=== PATIENT | female | born 1950 | race Caucasian/White ===

== ENCOUNTER 2018-11-09 17:04 | Inpatient (IN) | payer MEDICARE ==
[2018-11-09 17:08] VITALS: BMI 36.4
[2018-11-09] MEDS ORDERED: Dicyclomine 20 MG TAB PO PRN (18:12)
[2018-11-09] MEDS ORDERED: LINACLOTIDE 75 MCG PO PRN (18:12)
[2018-11-09] MEDS ORDERED: Acetaminophen 500 MG TAB PO PRN (18:13)
[2018-11-09] MEDS ORDERED: HYDROcodone/Acetaminophen 5/325 mg Tablet PO PRN ×2 (18:58→19:27)
[2018-11-09] MEDS: HYDROcodone/Acetaminophen 5/325 mg Tablet PO PRN (19:36)
[2018-11-09] MEDS: Aspirin Chewable 81 MG TAB PO SCH (20:45)
[2018-11-09] MEDS: Losartan Potassium 50 MG TAB PO SCH (20:47)
[2018-11-09] MEDS: Zolpidem Tartrate 5 MG TAB PO PRN (20:48)
[2018-11-10] MEDS: HYDROcodone/Acetaminophen 5/325 mg Tablet PO PRN ×4 (01:39→20:46)
[2018-11-10 05:27] LABS: #Basophils 0.1 thou/uL (0.0-0.2); #Eosinphils 0.3 thou/uL (0.0-0.7); #Monocytes 0.8 thou/uL (0.11-0.59); #Neutrophils 7.2 thou/uL (1.40-6.50); %Basophils 0.6 % (0.0-1.0); %Eosinophils 3.1 % (0.0-10.0); %Lymphocytes 19.5 % (21.0-51.0); %Monocytes 7.8 % (0.0-10.0); %Neutrophils 68.9 % (42.0-75.0); Hemoglobin 10.1 g/dL (12.0-16.0); Mean Corpuscular HGB CONC 31.2 g/dL (32.0-36.0); Mean Corpuscular Hemoglobin 28.1 pg (27.0-31.0); Mean Corpuscular Volume 89.9 fL (78.0-98.0); Mean Platelet Volume 7.2 fL (7.4-10.4); Platelet Count 301 thou/uL (130-400); RBC Distribution Width 12.6 % (11.5-14.5); Red Blood Cell (RBC) Count 3.61 mill/uL (4.20-5.40); White Blood Cell (WBC) Count 10.4 thou/uL (4.8-10.8)
[2018-11-10 05:41] LABS: Anion Gap 13 mmol/L (10-20); BUN (Urea Nitrogen) 9 mg/dL (9.8-20.1); Calc. Creatinine Clearance 132 mL/min (70-130); Calcium 8.7 mg/dL (7.8-10.44); Carbon Dioxide 26 mmol/L (23-31); Chloride 103 mmol/L (98-107); Estimated GFR-MDRD Greater than 90; Glucose 104 mg/dL (80-115); Potassium 4.3 mmol/L (3.5-5.1); Sodium 138 mmol/L (136-145)
[2018-11-10] MEDS: Ibuprofen 800 MG TAB PO PRN ×2 (06:27→16:48)
[2018-11-10] MEDS: Aspirin Chewable 81 MG TAB PO SCH ×2 (07:47→20:38)
--- NOTE | 2018-11-10 15:11 | HP ---
CHIEF COMPLAINT: Bilateral total knee replacement for physical therapy. BRIEF HISTORY: This is a pleasant 68-year-old female, who underwent bilateral elective total knee replacement. She was felt to be a candidate for inpatient rehabilitation and transferred here. The patient is resting in her chair and denies any complaints. Family is with her. She was restarted back on hydrocodone for her pain and Ambien for sleep. No concerns or questions. PAST MEDICAL HISTORY: 1. Osteoarthritis. 2. Hypertension. 3. Gastroesophageal reflux disease. 4. Obese with BMI between 30 and 34.9. PAST SURGICAL HISTORY: 1. Right parathyroidectomy. 2. Bilateral total knee replacement. SOCIAL HISTORY: Denies any tobacco, alcohol, or IV drug abuse. FAMILY HISTORY: Noncontributory to current admission. ALLERGIES: NO KNOWN DRUG ALLERGIES. MEDICATIONS: She has been transferred here on the following medications, 1. Tylenol 500 mg q.6 p.r.n. 2. Aspirin 40.5 mg b.i.d. 3. Bentyl 20 mg daily p.r.n. 4. Ibuprofen 800 mg q.8 p.r.n. 5. Losartan 100 mg at bedtime. 6. Protonix 40 mg b.i.d. 7. Linzess 75 mcg one tablet daily. REVIEW OF SYSTEMS: CARDIOVASCULAR: Denies any chest pain, shortness of breath, palpitations, PND, orthopnea, or pedal edema. RESPIRATORY: Denies any chronic cough, expectoration, pleuritic type chest pain. GASTROINTESTINAL: Denies any nausea, vomiting, diarrhea, constipation, hematemesis, melena, or hematochezia. GENITOURINARY: Denies any frequency, urgency, dysuria, or hematuria. CENTRAL NERVOUS SYSTEM: Denies any focal numbness, weakness, fainting spells. HEENT: Denies any difficulty with speech, vision, hearing, or swallowing. SKIN: Denies any rash. PHYSICAL EXAMINATION: GENERAL: Conor 68-year-old overweight female, who is resting comfortably in her chair and denies any complaints. VITAL SIGNS: She is afebrile. Heart rate 87, respirations 21, oxygen saturation 97% on room air, and blood pressure 119/59. HEENT: Normocephalic and atraumatic. Pupils are equally reactive to light and accommodation. External muscles intact. No JVD, thyromegaly, cervical lymphadenopathy, or throat exudates. No carotid bruits. CARDIOVASCULAR: S1 and S2 plus. Rate and rhythm regular. RESPIRATORY: Normal vesicular breath sounds heard in all lung fried. ABDOMEN: Soft, obese, nontender. Bowel sounds heard in all quadrants. EXTREMITIES: Without cyanosis or clubbing. Trace edema. Peripheral pulses are palpable. Knee incision with dressing. Incision is healthy. No surrounding erythema. No neurovascular compromise. CENTRAL NERVOUS SYSTEM: AAO x3. Cranial nerves 2 through 12 intact. Generalized weakness. IMPRESSION: 1. Osteoarthritis, status post bilateral total knee replacement. 2. Hypertension. 3. Gastroesophageal reflux disease. 4. Chronic constipation. PLAN: 1. Continue current medications. 2. Add [place] 5/325 q.6 p.r.n. for pain. 3. Add Ambien 5 mg at bedtime p.r.n. for sleep. 4. DVT prophylaxis. She is actually doing well activity patel and she is on aspirin b.i.d. I do not see that she needs anything more. 5. Decubitus precautions. 6. Stress ulcer prophylaxis, she is on Protonix. 7. Routine laboratory values. 8. Physical therapy. 9. Orthopedic precautions. 10. Incision care. 11. Discussed with the patient and family in detail. All questions answered. Job ID: [id number]
[2018-11-10] MEDS: Zolpidem Tartrate 5 MG TAB PO PRN (20:39)
[2018-11-10] MEDS: Losartan Potassium 50 MG TAB PO SCH (20:39)
[2018-11-11] MEDS: Ibuprofen 800 MG TAB PO PRN ×3 (02:48→18:36)
[2018-11-11] MEDS: HYDROcodone/Acetaminophen 5/325 mg Tablet PO PRN ×3 (07:29→21:48)
[2018-11-11] MEDS: Aspirin Chewable 81 MG TAB PO SCH ×2 (08:21→21:48)
[2018-11-11] MEDS: Polyethylene Glycol 3350 17 GM Packet PO PRN (14:46)
--- NOTE | 2018-11-11 15:18 | PRG ---
DATE OF SERVICE: 11/11/2018 SUBJECTIVE: Ms. Cook is up in her chair and denies any complaints. Pain is controlled. She would like a stool softener. No other concerns or questions. OBJECTIVE: VITAL SIGNS: She is afebrile, heart rate 80, respirations 16, oxygen saturation 97% on room air, and blood pressure 114/57. CARDIOVASCULAR SYSTEM: S1 and S2 plus. RESPIRATORY SYSTEM: Normal vesicular breath sounds. ABDOMEN: Soft and nontender. Bowel sounds heard in all quadrants. EXTREMITIES: Without cyanosis or clubbing. Both knee incisions with dressing. Trace edema. CENTRAL NERVOUS SYSTEM: Awake and responsive. Generalized weakness. IMPRESSION: 1. Osteoarthritis, status post bilateral total knee replacement. 2. Hypertension. 3. Gastroesophageal reflux disease. 4. Habitual constipation. PLAN: 1. Continue current medications. 2. Add Colace 100 mg p.o. b.i.d. 3. Heart-healthy diet. 4. DVT prophylaxis, she is on aspirin b.i.d. 5. Decubitus precautions. 6. Stress ulcer prophylaxis. 7. Incision care. 8. Orthopedic precautions. 9. Physical therapy. 10. Discussed with the patient and nursing in detail. All questions answered. Job ID: [id number]
[2018-11-11] MEDS: Zolpidem Tartrate 5 MG TAB PO PRN (21:48)
[2018-11-11] MEDS: Docusate 100 MG CAP PO SCH (21:50)
[2018-11-11] MEDS: Losartan Potassium 50 MG TAB PO SCH (21:50)
[2018-11-12] MEDS: Ibuprofen 800 MG TAB PO PRN ×2 (04:58→17:00)
[2018-11-12] MEDS: HYDROcodone/Acetaminophen 5/325 mg Tablet PO PRN ×3 (06:49→21:48)
[2018-11-12] MEDS: Docusate 100 MG CAP PO SCH ×2 (09:08→21:49)
[2018-11-12] MEDS: Aspirin Chewable 81 MG TAB PO SCH ×2 (09:09→21:49)
--- NOTE | 2018-11-12 13:47 | PRG ---
DATE OF SERVICE: 11/12/2018 SUBJECTIVE: Ms. Cook is up in her chair, and denies any complaints. She is noticing some pain after therapy, but the pain medicines are helping. No family at bedside. She still has not had a bowel movement and she is going to ask for the MiraLAX again. OBJECTIVE: VITAL SIGNS: She is afebrile. Heart rate 68, respirations 18, oxygen saturation 93% on room air, and blood pressure 142/67. CARDIOVASCULAR SYSTEM: S1-S2 plus. RESPIRATORY SYSTEM: Normal vesicular breath sounds. ABDOMEN: Soft and nontender. Bowel sounds heard in all quadrants. EXTREMITIES: Without cyanosis or clubbing. Bilateral knee incision with dressing. Trace edema. No erythema. CENTRAL NERVOUS SYSTEM: Awake and responsive. Generalized weakness. IMPRESSION: 1. Hypertension. 2. Gastroesophageal reflux disease. 3. Chronic constipation. 4. Osteoarthritis, status post bilateral total knee replacement. PLAN: 1. Continue current medications. 2. Bowel regimen. 3. Low-sodium diet. 4. Monitor blood pressure and adjust medications as needed. 5. Orthopedic precautions and incision care. 6. Physical therapy. 7. Routine laboratory values. 8. Discussed with the patient and nursing in detail. All questions answered. Job ID: [id number]
[2018-11-12] MEDS: Polyethylene Glycol 3350 17 GM Packet PO PRN (16:59)
[2018-11-12] MEDS: Zolpidem Tartrate 5 MG TAB PO PRN (21:49)
[2018-11-12] MEDS: Losartan Potassium 50 MG TAB PO SCH (21:49)
[2018-11-13] MEDS: Ibuprofen 800 MG TAB PO PRN ×2 (06:11→17:51)
[2018-11-13] MEDS: Polyethylene Glycol 3350 17 GM Packet PO PRN (08:24)
[2018-11-13] MEDS: HYDROcodone/Acetaminophen 5/325 mg Tablet PO PRN ×3 (08:26→21:35)
[2018-11-13] MEDS: Aspirin Chewable 81 MG TAB PO SCH ×2 (08:29→21:37)
[2018-11-13] MEDS: Docusate 100 MG CAP PO SCH ×2 (08:33→21:37)
--- NOTE | 2018-11-13 13:41 | PRG ---
DATE OF SERVICE: 11/13/2018 SUBJECTIVE: Ms. Cook is doing well. Plan is for her to be discharged home on Monday. She is going to start outpatient therapy and I advised her to get the orders from her orthopedic surgeon since all further queries and progress notes will go back to the ordering physician. She denies any other concerns or questions. OBJECTIVE: VITAL SIGNS: She is afebrile, heart rate 74, respirations 18, oxygen saturation 96% on room air, and blood pressure 134/65. CARDIOVASCULAR: S1 and S2 plus. RESPIRATORY: Normal vesicular breath sounds. ABDOMEN: Soft, nontender. Bowel sounds heard in all quadrants. EXTREMITIES: Without cyanosis or clubbing. CENTRAL NERVOUS SYSTEM: Awake and responsive. Generalized weakness. Both incisions look good and trace edema. IMPRESSION: 1. Hypertension. 2. Gastroesophageal reflux disease. 3. Chronic constipation. 4. Osteoarthritis, status post bilateral total knee replacement. PLAN: 1. The patient wants to be on a regular diet and understand risks. We will switch her to regular diet. 2. Monitor blood pressure and adjust medications as needed. 3. DVT prophylaxis. She is on aspirin b.i.d. 4. Incision care and orthopedic precautions. 5. Stress ulcer prophylaxis. 6. Decubitus precaution. 7. Physical therapy. 8. Discharge planning. Job ID: [id number]
[2018-11-13] MEDS: Zolpidem Tartrate 5 MG TAB PO PRN (21:37)
[2018-11-13] MEDS: Losartan Potassium 50 MG TAB PO SCH (21:37)
[2018-11-14] MEDS: Ibuprofen 800 MG TAB PO PRN ×2 (03:54→18:21)
[2018-11-14] MEDS: Aspirin Chewable 81 MG TAB PO SCH ×2 (08:39→20:41)
[2018-11-14] MEDS: HYDROcodone/Acetaminophen 5/325 mg Tablet PO PRN ×3 (08:39→22:03)
[2018-11-14] MEDS: Docusate 100 MG CAP PO SCH ×2 (08:39→20:41)
--- NOTE | 2018-11-14 13:23 | PRG ---
DATE OF SERVICE: 11/14/2018 SUBJECTIVE: Ms. Cook is doing well. Denies any complaints. Resting comfortably. No family at bedside. Constipation has resolved. OBJECTIVE: VITAL SIGNS: She is afebrile. Heart rate 80, respirations 16, oxygen saturation 97% on room air, blood pressure 152/71. CARDIOVASCULAR: S1 and S2 plus. RESPIRATORY: Normal vesicular breath sounds. ABDOMEN: Soft, nontender. Bowel sounds heard in all quadrants. EXTREMITIES: Without cyanosis or clubbing. Bilateral knee incision with dressing. Trace edema. CENTRAL NERVOUS SYSTEM: Generalized weakness, otherwise nonfocal. IMPRESSION: 1. Osteoarthritis, status post bilateral total knee replacement. 2. Hypertension. 3. Chronic constipation. 4. Anemia due to acute blood loss. PLAN: 1. Continue current medications. 2. Nutritional support. 3. DVT prophylaxis. 4. Decubitus precautions. 5. Stress ulcer prophylaxis. 6. Orthopedic precautions and incision care. 7. Discharge planning, she wants to go home on Monday. Job ID: [id number]
[2018-11-14] MEDS: Losartan Potassium 50 MG TAB PO SCH (20:42)
[2018-11-14] MEDS: Zolpidem Tartrate 5 MG TAB PO PRN (22:04)
[2018-11-15] MEDS: Ibuprofen 800 MG TAB PO PRN ×2 (04:29→13:24)
[2018-11-15] MEDS: Docusate 100 MG CAP PO SCH ×3 (07:46→20:59)
[2018-11-15] MEDS: Aspirin Chewable 81 MG TAB PO SCH ×2 (07:46→20:59)
[2018-11-15] MEDS: HYDROcodone/Acetaminophen 5/325 mg Tablet PO PRN ×3 (08:28→21:43)
--- NOTE | 2018-11-15 13:53 | PRG ---
DATE OF SERVICE: 11/15/2018 SUBJECTIVE: Ms. Cook is doing well. Denies any complaints. Resting comfortably. Arrangements have been made for outpatient physical therapy. She also has followup appointment with Dr. Clark. She wants to go home tomorrow after lunch. I told her I am going to get all the paperwork done today. She does not need any prescriptions. No family at bedside. Discussed with nursing. OBJECTIVE: VITAL SIGNS: She is afebrile, heart rate 71, respirations 18, oxygen saturation 95% on room air, and blood pressure 142/69. CARDIOVASCULAR SYSTEM: S1 and S2 plus. RESPIRATORY SYSTEM: Normal vesicular breath sounds. ABDOMEN: Soft and nontender. Bowel sounds heard in all quadrants. EXTREMITIES: Bilateral knee incision is healthy. Trace edema. No neurovascular compromise. CENTRAL NERVOUS SYSTEM: Awake and responsive. Generalized weakness. IMPRESSION: 1. Bilateral total knee replacement for osteoarthritis. 2. Hypertension. 3. Habitual constipation. 4. Anemia due to acute blood loss. PLAN: 1. Continue current medications. 2. Nutritional support. 3. Orthopedic precautions. 4. Incision care. 5. DVT prophylaxis per orthopedic recommendations. 6. Continue therapy. 7. Discharge planning. The patient aware and all questions answered. Job ID: [id number]
[2018-11-15] MEDS: Zolpidem Tartrate 5 MG TAB PO PRN (21:00)
[2018-11-15] MEDS: Losartan Potassium 50 MG TAB PO SCH (21:00)
[2018-11-16] MEDS: Ibuprofen 800 MG TAB PO PRN ×2 (02:29→12:00)
[2018-11-16] MEDS: Aspirin Chewable 81 MG TAB PO SCH (08:22)
[2018-11-16] MEDS: Docusate 100 MG CAP PO SCH (08:22)
[2018-11-16] MEDS: HYDROcodone/Acetaminophen 5/325 mg Tablet PO PRN (08:26)
[2018-11-16 13:17] VITALS: BP 150/75; TEMP 98.1
--- NOTE | 2018-11-16 18:40 | DIS ---
DATE OF ADMISSION: 11/09/2018 DATE OF DISCHARGE: 11/16/2018 PRINCIPAL DIAGNOSIS: Osteoarthritis, status post bilateral total knee replacement. SECONDARY DIAGNOSES: 1. Hypertension. 2. Habitual constipation. 3. Gastroesophageal reflux disease. 4. Obesity with BMI between 30 and 34.9. COMPLICATIONS: None. ADVERSE REACTIONS: None. PROCEDURES: None. CONSULTATIONS: None. HOSPITAL COURSE: The patient was transferred after undergoing bilateral total knee replacement for therapy. She has done remarkably well and was deemed stable for discharge to home. She states that she has her prescriptions at home and does not need any prescriptions. She has a followup appointment already set up with Dr. Clark and also has outpatient therapy scheduled. PHYSICAL EXAMINATION: VITAL SIGNS: On the day of discharge, she is afebrile, heart rate 76, respirations 18, oxygen saturation 97% on room air, and blood pressure 150/75. CARDIOVASCULAR: S1 and S2 plus. RESPIRATORY: Normal vesicular breath sounds. ABDOMEN: Soft, nontender. Bowel sounds heard in all quadrants. EXTREMITIES: Without cyanosis, clubbing. Trace edema. Bilateral knee incisions are healthy. CENTRAL NERVOUS SYSTEM: Awake and responsive. Generalized weakness. DISCHARGE MEDICATIONS: Same as admission which is, 1. Tylenol 500 q.6 p.r.n. 2. [place] 5/325 one to two tablets q.6 p.r.n. Advised her to monitor her Tylenol intake if she is taking [place] 2 tablets every 6 hours. 3. Aspirin 40.5 mg b.i.d. 4. Bentyl 20 mg daily as needed. 5. Colace 100 mg b.i.d. 6. Cozaar 100 mg at bedtime. 7. Protonix 40 mg b.i.d. 8. daily. DIET: Heart healthy diet. FOLLOWUP: The patient was advised to follow up with Orthopedic Surgery, orthopedic precautions, and she was advised to call us with any questions or concerns. TIME SPENT: Total time spent on this discharge 35 minutes. Job ID: [id number]
== END 2018-11-16 12:15 | disposition home or self-care (01) | DRG 560 ==
LOC: NAV ACUTE 17:04
PROVIDERS: ADMIT Internal Medicine; ATTEND Internal Medicine
DX: Z47.1 Aftercare following joint replacement surgery (principal); D62 Acute posthemorrhagic anemia; Z96.653 Presence of artificial knee joint, bilateral; I10 Essential (primary) hypertension; K21.9 Gastro-esophageal reflux disease without esophagitis; E66.9 Obesity, unspecified; K59.09 Other constipation; Z98.890 Other specified postprocedural states; Z79.82 Long term (current) use of aspirin; Z79.899 Other long term (current) drug therapy; Z68.36 Body mass index [BMI] 36.0-36.9, adult
CPT/HCPCS: 80048; 85025